=== PATIENT | male | born 1985 | race Two or more races ===

== ENCOUNTER 2018-10-07 09:51 | Day surgery (SDC) | payer BC ==
[2018-10-03 11:38] LABS: Basophils # (auto) 0 uL; Basophils % (auto) 0.8 % (0.0-2.0); Eosinophils # (auto) 0.1 uL; Eosinophils % (auto) 1.4 % (0.0-7.0); Hematocrit 48.7 % (41.0-53.0); Hemoglobin 16.5 g/dL (13.5-17.5); Lymphocytes # (auto) 1.6 uL; Lymphocytes % (auto) 33.8 % (10.0-50.0); Mean Corpuscular Hemoglobin 31.9 pg (28.0-32.0); Monocytes # (auto) 0.5 uL; Monocytes % (auto) 9.9 % (0.0-12.0); Neutrophils # (auto) 2.6 uL; Neutrophils % (auto) 54.1 % (37.0-80.0); Nucleated Red Blood Cells % 0.1 %; Platelet Count (auto) 152 10^3/uL (140-450); Red Blood Cells 5.18 10^6/uL (4.5-5.90); Red Cell Distribution Width 12.8 % (11.8-14.3); White Blood Cell 4.8 10^3/uL (4.4-10.8)
[2018-10-03 11:50] LABS: Urine Bacteria NONE SEEN /hpf (None Seen); Urine Blood Negative /uL (Negative); Urine WBC 1 /hpf (0 - 3)
[2018-10-03 11:59] LABS: Potassium 4.5 mmol/L (3.5-5.1)
[2018-10-03 12:15] LABS: INR 0.98 (0.9-1.15); Partial Thromboplastin Time 25.4 sec (23.64-32.05)
[~2018-10-07] VITALS: Ht 185.4 cm; Wt 70.3 kg
[2018-10-07] MEDS ORDERED: LIDOCAINE W/ EPINEPHRINE 1% 20ML VIAL ONE (12:40)
[2018-10-07] MEDS ORDERED: CIPROFLOXACIN 400MG/200ML 200 ML IV ONE (13:03)
[2018-10-07] MEDS ORDERED: MEPERIDINE HCL (25 MG/ML) 1ML VIAL ONE (13:14)
[2018-10-07] MEDS ORDERED: PROPOFOL 10 MG/ML 20 ML IV ONE (13:15)
[2018-10-07] MEDS ORDERED: fentaNYL CITRATE 100 MCG/2 ML VL ONE (13:15)
[2018-10-07] MEDS ORDERED: MIDAZOLAM HCL 1MG/1ML-2 ML VIAL ONE (13:15)
[2018-10-07] MEDS ORDERED: KETOROLAC TROMETH 30 MG/ML 1ML VIAL ONE (13:32)
[2018-10-07 14:18] VITALS: BP 136/71
== END 2018-10-07 14:30 | disposition home or self-care (01) ==
LOC: SUR 09:51
PROVIDERS: ATTEND Urology
DX: Z30.2 Encounter for sterilization (principal); D53.8 Other specified nutritional anemias; N39.0 Urinary tract infection, site not specified; Z98.890 Other specified postprocedural states
CPT/HCPCS: 36415; 55250; 80048; 81001; 85025; 85610; 85730; 87086; 88302; J0744; J1885; J2175; J2250; J2704; J3010

== ENCOUNTER → 2018-12-13 | Outpatient (CLI) | payer BC | END | disposition home or self-care (01) | LOC: LAB 08:31 | PROVIDERS: ATTEND Urology | DX: Z30.09 Encounter for other general counseling and advice on contraception (principal); Z30.2 Encounter for sterilization | CPT/HCPCS: 89321 ==